=== PATIENT | female | born 1945 | race Caucasian/White ===

== ENCOUNTER 2020-04-15 15:43 | Emergency (ER) | payer MEDICARE, SELFPAY ==
[2020-04-15] VITALS (22 sets, daily range): BP systolic 91–162; BP diastolic 48–78; PULSE 74–96; RESP 16–19; TEMP 36.3; O2SAT 97–100
--- NOTE | ~2020-04-15 | CT_ITS ---
EXAMINATION: CT brain wo con INDICATION: Headache, dizziness and fever COMPARISON: None TECHNIQUE: Standard unenhanced head CT. The dose-length product (DLP) was 605.33 mGy-cm. The mA was a djusted according to patient size. Iterative reconstruction technique was employed. FINDINGS: There is no acute intraparenchymal hemorrhage. No evidence of mass lesion. No evidence of a cute infarction. There is mild periventricular and subcortical hypodensity probably related to small vessel ischemic disease. There is mild prominence of the sulci and ventricles related to cerebral atr ophy. Intracranial calcified cerebral atherosclerosis is noted. There are no extra-axial collections. There is no mass effect or midline shift. The orbits and soft tissues are unremarkable. There is mi ld mucosal thickening of the paranasal sinuses. IMPRESSION: 1. No acute intracranial abnormality. 2. Age related findings. Reviewed, dictated and finalized at location A.
--- NOTE | ~2020-04-15 | XR_ITS ---
EXAMINATION: XR chest 1V portable INDICATION: Weakness, nausea and vomiting TECHNIQUE: Portable AP chest at 1717 hours COMPARISON: None available FINDINGS: The lungs are free of acute opacities. There is no pleural effusion or pneumothorax. The ca rdiomediastinal silhouette is normal. IMPRESSION: 1. No acute cardiopulmonary abnormality. Reviewed, dictated and finalized at location A.
[2020-04-15 16:16] LABS: Basophils Percent Auto 0.2 % (0.2-1.2); Hematocrit 44.9 % (37.0-47.0); Immature Granulocyte Absolute 0.04 K/mm3 (0.00-0.031); Immature Granulocyte Percent A 0.4 % (0-0.5); Lymphocytes Absolute Auto 1.96 K/mm3 (0.9-3.2); Lymphocytes Percent Auto 18.6 % (18.3-44.2); Mean Corpuscular HGB Conc 33.4 g/dl (32-36); Mean Corpuscular Hemoglobin 27.9 pg (26-34); Mean Corpuscular Volume 83.6 fl (80-100); Mean Platelet Volume 12.1 fl (7.4-10.4); Monocytes Absolute Auto 0.8 K/mm3 (0.1-0.6); Monocytes Percent Auto 7.4 % (2.6-8.5); Neutrophils Absolute Auto 7.7 K/mm3 (1.3-6.7); Neutrophils Percent Auto 73.4 % (45.5-73.1); Platelet Count Result 231 k/mm3 (150-375); Red Blood Count 5.37 M/mm3 (4.2-5.4); Red Cell Distribution Width 12.8 % (11.5-14.5); White Blood Count 10.5 K/mm3 (4.5-10.0)
[2020-04-15 16:29] LABS: Alanine Aminotransferase 27 U/L (4-35); Albumin Level 4.3 g/dL (3.5-5.1); Alkaline Phosphatase 66 U/L (38-126); Anion Gap 14 mmol/L (8-16); Aspartate Amino Transferase 27 U/L (14-36); Bilirubin,Total 1.4 mg/dL (0.2-1.3); Blood Urea Nitrogen 19 mg/dL (7-17); Calcium 9.2 mg/dL (8.4-10.2); Carbon Dioxide 23 mmol/L (22-30); Chloride 92 mmol/L (98-107); Estimated CRCL calculation 51 ml/min; Estimated Glomerular Filt Rate > 60; Glucose 112 mg/dL (65-105); Lipase 234 U/L (23-300); Potassium 3.7 mmol/L (3.4-5.0); Sodium 129 mmol/L (137-145)
--- NOTE | 2020-04-15 17:12 | ECG_ITS ---
Measurements Intervals [place] Rate: 85 P: -16 MT: 154 QRS: -14 QRSD: 89 T: 22 QT: 354 QTc: 421 Interpretive Statements SINUS RHYTHM ANTEROSEPTAL INFARCT, AGE INDETERMINATE BORDERLINE T WAVE ABNORMALITY- INFERIOR LEADS ABNORMAL ECG Electronically Signed On 04-15-2020 17:34:18 CDT by Gino Greene D.O.
--- NOTE | 2020-04-15 17:14 | ED.GENADULT ---
HPI - General Adult General Chief complaint: Abdominal Pain <Beba Ewing MD - Last Filed: 04/16/20 16:29> Stated complaint: abd pain, fever, possible cellulitis to face <Beba Ewing MD - Last Filed: 04/16/20 16:29> Time Seen by Provider: 04/15/20 16:58 <Beba Ewing MD - Last Filed: 04/16/20 16:29> Source: patient <Beba Ewing MD - Last Filed: 04/16/20 16:29> Mode of arrival: ambulatory <Beba Ewing MD - Last Filed: 04/16/20 16:29> Limitations: no limitations <Beba Ewing MD - Last Filed: 04/16/20 16:29> History of Present Illness HPI narrative: This patient is a 74 year old female who presents for evaluation for symptoms COVID virus. Patient states 4 days ago she developed nausea, vomiting, body aches, diarrhea, dizziness, sore throat and headache. She states her headache are intermittent. She has subjective fever. She does not have associated abdominal pain, chest pain or cough. She also denies COVID exposure. Her daughter who is at bedside states her son spents yesterday with patient and he now has nausea and vomiting. <Beba Ewing MD - Last Filed: 04/16/20 16:29> Related Data Allergies/adverse reactions: Allergies Allergy/AdvReac Type Severity Reaction Status Date / Time oxycodone Allergy Unknown Palpitation Verified 04/15/20 16:05 s <Beba Ewing MD - Last Filed: 04/16/20 16:29> Review of Systems Review of Systems: All systems reviewed & are unremarkable except as noted in HPI and below <Beba Ewing MD - Last Filed: 04/16/20 16:29> Constitutional: Constitutional: Reports fatigue <Beba Ewing MD - Last Filed: 04/16/20 16:29> ENT: Reports dizziness and Reports sore throat <Beba Ewing MD - Last Filed: 04/16/20 16:29> Cardiovascular: Cardiovascular: Denies chest pain <Beba Ewing MD - Last Filed: 04/16/20 16:29> Respiratory: Respiratory: Denies cough, Denies dyspnea and Denies wheezing <Beba Ewing MD - Last Filed: 04/16/20 16:29> Gastrointestinal: Gastrointestinal: Denies abdominal pain, Reports diarrhea, Reports nausea and Reports vomiting <Beba Ewing MD - Last Filed: 04/16/20 16:29> Musculoskeletal: Musculoskeletal: Reports myalgias <Beba Ewing MD - Last Filed: 04/16/20 16:29> [facility] Past Medical History Medical History: Medical History (Updated 04/16/20 @ 00:00 by Thomas Cervantes) Facial cellulitis <Beba Ewing MD - Last Filed: 04/16/20 16:29> Surgical History Surgical History: Surgical History (Updated 04/15/20 @ 17:26 by Beba Ewing MD) H/O knee surgery <Beba Ewing MD - Last Filed: 04/16/20 16:29> Social History Social History: Social History (Updated 06/12/19 @ 19:[address]) Smoking status: Never smoker Gender identity (if verbalized by the patient): Female <Beba Ewing MD - Last Filed: 04/16/20 16:29> Exam Const: General: alert and ill appearing <Beba Ewing MD - Last Filed: 04/16/20 16:29> Orientation/consciousness: patient oriented x3 <Beba Ewing MD - Last Filed: 04/16/20 16:29> HENMT: Head: normocephalic and atraumatic <Beba Ewing MD - Last Filed: 04/16/20 16:29> Face and sinus: face symmetric <Beba Ewing MD - Last Filed: 04/16/20 16:29> Mouth: Yes lip normal and Yes moist mucous membranes <Beba Ewing MD - Last Filed: 04/16/20 16:29> Eyes: Pupils: Equal, round and reactive pupils present <Beba Ewing MD - Last Filed: 04/16/20 16:29> EOM: EOMs intact bilaterally <Beba Ewing MD - Last Filed: 04/16/20 16:29> Neck: Neck: normal visual inspection <Beba Ewing MD - Last Filed: 04/16/20 16:29> Chest: Chest palpation & inspection: normal inspection of the chest <Beba Ewing MD - Last Filed: 04/16/20 16:29> Resp: Effort & Inspection: normal respiratory effort, no retractions and no use of accessor
--- NOTE | 2020-04-15 17:16 | PC.NURSE ---
PT REMINDED OF NEED FOR UA, UNABLE TO GIVE SAMPLE AT THIS TIME, REFUSING STRAIGHT CATH.
[2020-04-15] MEDS: SODIUM CHLORIDE 0.9% IV 1,000 ML 999 ML IV CONT ×2 (17:38)
[2020-04-15] MEDS: ONDANSETRON INJ 4 MG/2 ML VIAL IV PUSH (17:38)
[2020-04-15 17:57] LABS: Lactic Acid Reflex 1.3 mmol/L (0.7-2.1)
[2020-04-15 18:00] LABS: CRP 1.8 mg/dL (<1.0); Magnesium 2.1 mg/dL (1.6-2.3)
--- NOTE | 2020-04-15 18:04 | PC.NURSE ---
PT REMINDED OF NEED FOR UA, UNABLE TO GIVE SAMPLE AT THIS TIME, REFUSING STRAIGHT CATH.
--- NOTE | 2020-04-15 18:32 | PC.NURSE ---
PT REMINDED OF NEED FOR UA, UNABLE TO GIVE SAMPLE AT THIS TIME, REFUSING STRAIGHT CATH.
--- NOTE | 2020-04-15 19:15 | PC.NURSE ---
report to lucila sheridan at this time, she has assumed pt care.
[2020-04-15 19:59] LABS: Add Urine Microscopic? YES; Appearance Urine Clear (Clear); Bacteria Urine Trace /hpf; Bilirubin Urine Negative (Negative); Blood Urine 1+ (Negative); Color Urine Yellow (Yellow); Glucose Urine UA Negative (Negative); Hyaline Casts Urine 30-49 /lpf; Ketones Urine Trace mg/dL (Negative); Leukocyte Esterase Ur 1+ LEU/UL (Negative); Mucus Urine Few /lpf; Nitrate Urine Negative (Negative); Protein Urine Negative (Negative); RBC Urine 0-2 /hpf (0-2); Squamous Epithelial Cell Urine Few /hpf (Few); Urobilinogen Urine Negative mg/dL (<2.0)
[2020-04-16 13:59] LABS: SARS-CoV-2 RNA PCR Negative
== END 2020-04-15 21:50 | disposition home or self-care (01) ==
PROVIDERS: Emergency Provider General Practice; PCP Internal Medicine
DX: R11.2 Nausea with vomiting, unspecified (principal); E86.0 Dehydration; Z20.828 Contact with and (suspected) exposure to other viral communicable diseases; R94.31 Abnormal electrocardiogram [ECG] [EKG]; R82.998 Other abnormal findings in urine
CPT/HCPCS: 36415; 70450; 71045; 80053; 81001; 83605; 83690; 83735; 85025; 86140; 87077; 87086; 87088; 87186; 87635; 93005; 96361; 96374; 99284; C9803; J2405; J7030; U0003